=== PATIENT | male | born 1960 | race Caucasian/White ===

== ENCOUNTER 2023-06-29 11:13 | Day surgery (SDC) | payer OTHER ==
[~2023-06-29 11:13] MED LIST: Midazolam 1 MG/ML 2 ML SDV ONE; Propofol 200 MG/20 ML SDV ONE
[2023-06-29] MEDS ORDERED: Sodium Chloride 0.9% 10 ML Syringe FLUSH PRN (11:30)
[2023-06-29] MEDS ORDERED: Lactated Ringers 1,000 ML IV SCH (11:30)
== END 2023-06-29 13:54 | disposition home or self-care (01) ==
LOC: LL.SDS 11:13
PROVIDERS: ATTEND Surgery
DX: R19.5 Other fecal abnormalities (principal); E11.9 Type 2 diabetes mellitus without complications; H04.302 Unspecified dacryocystitis of left lacrimal passage; E78.5 Hyperlipidemia, unspecified; Z79.85 Long-term (current) use of injectable non-insulin antidiabetic drugs; Z79.84 Long term (current) use of oral hypoglycemic drugs; Z79.899 Other long term (current) drug therapy; Z79.82 Long term (current) use of aspirin
CPT/HCPCS: 00812; J2250; J2704; J7120